=== PATIENT | female | born 1935 | race Caucasian/White ===

== ENCOUNTER 2023-08-04 20:15 | Emergency (ER) | payer MEDICARE, BC, OTHER, SELFPAY ==
[2023-08-04 20:18] VITALS: BP 165/72
[2023-08-05 00:56] VITALS: BMI 19.2
[2023-08-05 01:02] VITALS: BP 150/62
[2023-08-05 01:26] LABS: % Basophils 0.4 % (0-2); % Eosinophils 0.4 % (0-6); % Immature Granulocytes 0.4 % (0-0.5); % Lymphocytes 5.9 % (20.5-51.1); % Monocytes 5.3 % (1.7-9.3); % Neutrophils 87.6 % (42.2-75.2); Absolute Basophils 0.1 10^3/uL (0-0.2); Absolute Eosinophils 0.1 10^3/uL (0-0.7); Absolute Immature Granulocytes 0.1 10^3/uL (0-0.05); Absolute Lymphocytes 0.8 10^3/uL (1.2-3.4); Absolute Monocytes 0.7 10^3/uL (0.1-0.6); Absolute Neutrophils 11.8 10^3/uL (1.4-6.5); Hematocrit 34.8 % (37.0-47.0); Hemoglobin 11.9 g/dL (12.0-16.0); Mean Corp Hgb Conc. 34.2 g/dL (33.0-37.0); Mean Corpuscular Hgb 29.4 pg (27.0-31.0); Mean Corpuscular Volume 85.9 fL (81.0-99.0); Mean Platelet Volume 10.2 fL (7.4-10.4); Nucleated Red Blood Cells % 0 %; Platelet Count 227 10^3/uL (130-400); Red Blood Cell Count 4.05 10^6/uL (4.20-5.40); Red Cell Dist. Width 12.9 % (11.5-14.5); White Blood Cell Count 13.5 10^3/uL (4.8-10.8)
[2023-08-05 01:41] LABS: ALT (SGPT) 43 U/L (0-35); AST (SGOT) 72 U/L (14-36); Albumin 4.2 g/dl (3.5-5.0); Alkaline Phosphatase 151 U/L (38-126); Blood Urea Nitrogen 24 mg/dl (7-17); Calcium 9.5 mg/dl (8.4-10.2); Carbon Dioxide 26 mmol/L (22-30); Chloride 105 mmol/L (98-107); Estimated Creatinine Clearance 50 ml/min; Glucose 117 mg/dl (70-99); Lipase 46 U/L (23-300); Potassium 4.2 mmol/L (3.5-5.1); Sodium 138 mmol/L (135-145); Total Bilirubin 0.4 mg/dl (0.2-1.3); Total Protein 7.1 g/dl (6.3-8.2); eGFR > 60.00
--- NOTE | 2023-08-05 01:55 | ED.GENMED ---
History of Present Illness
<ANTHONY Dickey - Last Filed: 08/07/23 17:49>
General
Chief Complaint: Abdominal Pain
Source: patient and family
Exam Limitations: none
Time Seen by Provider: 08/05/23 00:58
Nursing documentation reviewed up to this point in time: agreed with
Travel History
Have you had any contact with someone who has COVID-19?: No
Do you have any symptoms of coronavirus? Fever > 100 degrees, chills, cough, shortness of breath, sore throat, loss of taste or smell, muscle aches, or headache?: No
History of Present Illness
History of Present Illness:
Patient is an 87-year-old female who started with lower abdominal pain around 4:00pm. She tried Gas-X but this did not relieve her symptoms. She reports that she tried to eat something and that made her pain worse. She complains of pain
throughout the lower abdominal region including bilateral lower quadrants. She was nauseous but denies any nausea now. She reports she was constipated but moved her bowels several times in the waiting room. She denies any fever chills. Denies
any urinary frequency urgency or dysuria. Denies any back pain.
Past History
<ANTHONY Dickey - Last Filed: 08/07/23 17:49>
Past History
ED Past Medical History: HTN
ED Past Surgical History: None
Social History
Tobacco: Non-smoker
Alcohol: None
Review of Systems
<ANTHONY Dickey - Last Filed: 08/07/23 17:49>
Review of Systems
Allergies reviewed?: Yes
All Other Systems: ROS reviewed and negative except as documented in HPI and ROS
Constitutional: Reports no symptoms
Respiratory: Reports no symptoms
Cardiac: Reports no symptoms
ABD/GI: Reports abdominal pain, constipated and other (Was constipated but moved her bowels today); Denies nausea or vomiting
: Reports no symptoms; Denies dysuria, frequency, flank pain or difficulty voiding
Musculoskeletal: Reports no symptoms
Skin: Reports no symptoms
Neurological: Reports no symptoms
Hematologic/Lymphatic: Reports no symptoms
Psychiatric: Reports no symptoms
Phy Exam
<ANTHONY Dickey - Last Filed: 08/07/23 17:49>
General Physical Exam
General Presentation: no apparent distress
General age: appears stated age
General Skin: warm and dry
General Habitus: normal
General Mental: alert
General Hydration: appears well hydrated
Cardiovascular Exam
Cardiovascular Exam: regular rate/rhythm
Gastrointestinal Exam
Gastrointestinal Exam: soft and other (tender throughout lower abd including b/ l lq )
Neurological Exam
Neurological Exam: alert and oriented x3
Musculoskeletal Exam
Musculoskeletal Exam: full ROM
Skin Exam
Skin Exam: normal color and warm/dry
Psychiatric Exam
Psychiatric Exam: normal mood/affect
Course
<ANTHONY Dickey - Last Filed: 08/07/23 17:49>
Orders/Labs/Results
Orders:
Orders
08/04/23 20:19
Complete Blood Count/With Diff Urgent
Comprehensive Metabolic Panel Urgent
Lipase Urgent
08/05/23 01:53
Diphenhydramine [Benadryl] 50 mg IV NOW STA
Hydrocortisone Sod Succinate [Solu-Cortef] 200 mg IV NOW STA
Iohexol [Omnipaque] See Protocol PO NOW STA
08/05/23 01:54
CT Abd/pel W Iv And Oral Contr Urgent
Comment:
Reason For Exam: lower abd pain
0.9% Sodium Chloride 500 ml [Nss] 500 ml IV BOLUS
08/05/23 02:43
UA Reflex to Culture [Urinalysis Reflex To Culture] Urgent
Date Specimen was Collected: 08/05/23
Time Specimen was Collected: 02:29
Abnormal Lab Results
08/05/23
01:16
WBC 13.5 H 10^3/uL
(4.8-10.8)
RBC 4.05 L 10^6/uL
(4.20-5.40)
Hgb 11.9 L g/dL
(12.0-16.0)
Hct 34.8 L %
(37.0-47.0)
Abs Immat Gran (auto) 0.1 H 10^3/uL
(0-0.05)
Absolute Neuts (auto) 11.8 H 10^3/uL
(1.4-6.5)
Absolute Lymphs (auto) 0.8 L 10^3/uL
(1.2-3.4)
Absolute Monos (auto) 0.7 H 10^3/uL
(0.1-0.6)
Neutrophils % 87.6 H %
(42.2-75.2)
Lymphocytes % 5.9 L %
(20.5-51.1)
BUN 24 H mg/dl
(7-17)
Glucose 117 H mg/dl
(70-99)
AST 72 H U/L
(14-36)
ALT 43 H U/L
(0-35)
Alkaline Phosphatase 151 H U/L
(38-126)
08/05/23 01:16
08/05/23 01:16
Vital Signs
Initial and Last Documented VS:
Initial Vital Signs
Temp Pulse Resp BP Pulse Ox
98.9 F 72 18 165/72 94
08/04/23 20:18 08/04/23 20:18 08/04/23 20:18 08/04/23 20:18 08/04/23 20:18
Last Documented Vital Signs
Temp Pulse Resp BP Pulse Ox
98.6 F 68 15 130/51 96
08/05/23 01:00 08/05/23 05:15 08/05/23 05:15 08/05/23 05:00 08/05/23 05:15
<Geraldo Sierra MD - Last Filed: 08/05/23 05:13>
Orders/Labs/Results
Orders:
Orders
08/04/23 20:19
Complete Blood Count/With Diff Urgent
Comprehensive Metabolic Panel Urgent
Lipase Urgent
08/05/23 01:53
Diphenhydramine [Benadryl] 50 mg IV NOW STA
Hydrocortisone Sod Succinate [Solu-Cortef] 200 mg IV NOW STA
Iohexol [Omnipaque] See Protocol PO NOW STA
08/05/23 01:54
CT Abd/pel W Iv And Oral Contr Urgent
Comment:
Reason For Exam: lower abd pain
0.9% Sodium Chloride 500 ml [Nss] 500 ml IV BOLUS
08/05/23 02:43
UA Reflex to Culture [Urinalysis Reflex To Culture] Urgent
Date Specimen was Collected: 08/05/23
Time Specimen was Collected: 02:29
Abnormal Lab Results
08/05/23
01:16
WBC 13.5 H 10^3/uL
(4.8-10.8)
RBC 4.05 L 10^6/uL
(4.20-5.40)
Hgb 11.9 L g/dL
(12.0-16.0)
Hct 34.8 L %
(37.0-47.0)
Abs Immat Gran (auto) 0.1 H 10^3/uL
(0-0.05)
Absolute Neuts (auto) 11.8 H 10^3/uL
(1.4-6.5)
Absolute Lymphs (auto) 0.8 L 10^3/uL
(1.2-3.4)
Absolute Monos (auto) 0.7 H 10^3/uL
(0.1-0.6)
Neutrophils % 87.6 H %
(42.2-75.2)
Lymphocytes % 5.9 L %
(20.5-51.1)
BUN 24 H mg/dl
(7-17)
Glucose 117 H mg/dl
(70-99)
AST 72 H U/L
(14-36)
ALT 43 H U/L
(0-35)
Alkaline Phosphatase 151 H U/L
(38-126)
08/05/23 01:16
08/05/23 01:16
Vital Signs
Initial and Last Documented VS:
Initial Vital Signs
Temp Pulse Resp BP Pulse Ox
98.9 F 72 18 165/72 94
08/04/23 20:18 08/04/23 20:18 08/04/23 20:18 08/04/23 20:18 08/04/23 20:18
Last Documented Vital Signs
Temp Pulse Resp BP Pulse Ox
98.6 F 68 15 130/51 96
08/05/23 01:00 08/05/23 05:15 08/05/23 05:15 08/05/23 05:00 08/05/23 05:15
<ANTHONY Dickey - Last Filed: 08/07/23 17:49>
MDM/Problems Addressed
MDM/Problems Addressed:
Patient is an 87-year-old female who presented with lower abdominal pain that started at 4:00 PM. Patient send for the lower abdominal region denies any UTI symptoms. Patient arrives afebrile white count minimally elevated 2.5, normal creatinine
BUN minimally elevated 24 minimally elevated LFTs. Will order CAT scan with oral and IV contrast. Patient has had a rash from IV contrast but no anaphylaxis. Will order prep. Patient currently drinking tolerating contrast. 0315: Care of
patient this time transferred to Dr. Sierra.
<ANTHONY Dickey - Last Filed: 08/07/23 17:49>
*Critical Care Note
Total Time (30-74mins, 75-104mins- exclusive of procedures): Not Applicable
<Geraldo Sierra MD - Last Filed: 08/05/23 05:13>
Update Note
Update Note:
CT report reviewed and discussed with the patient family. Pt otherwise is afebrile, hemodynamically stable, and nontoxic appearing at discharge. History/exam, along with CT scan consistent with nonspecific abdominal pain, possibly gastritis vs viral
illness. As such, patient will be discharged home in stable condition, with recommendation to continual hydration at home along with bland diet, as well as PCP f/u.
ED Attending Note
<ANTHONY Dickey - Last Filed: 08/07/23 17:49>
-
Portions of this chart may have been created with voice recognition software.� Occasional wrong word or��sound alike� substitutions may have occurred due to the inherent limitations of voice recognition software.
Discharge Plan
Departure
Patient Disposition: Home (Routine Discharge)
Date of Disposition: 08/05/23
Time of Disposition: 05:12
Patient with high blood pressure during this ER visit?: Yes
Condition: Good
Discharge Problem:
Abdominal pain
Instructions: Rooks Diet, Abdominal Pain
Prescriptions:
No Action
omeprazole
40 mg DAILY
disopyramide phosphate 150 mg Capsule
150 mg TID
Probiotic
250 mg BID
cholecalciferol (vitamin D3)
1,000 unit DAILY
Probiotic 3 billion cell capsule
3,000 mmu cells PO DAILY Qty: 30 0RF
Referrals:
Monster Villavicencio MD [Family Provider] -
Activity Restrictions/Additional Instructions:
As discussed, please follow up with your primary care physician with any further concerns.
Interventions
Interventions:
*Risk Screen - Suicide Last Done: 08/05/23 01:01
*General Assessment Last Done: 08/05/23 01:01
*Neglect/Abuse Screening Last Done: 08/05/23 01:01
ED- Fall Risk Assessment Last Done: 08/05/23 01:01
*ED COVID-19 Vaccine History Last Done: 08/04/23 20:18
*Nursing Disposition Last Done: 08/05/23 05:25
OE-[facility]-Mlcppsfoy[facility] Assessment Last Done: 08/05/23 01:00
Discharge Date and Time
Discharge Date/Time: 08/05/23 05:25
Print Language: TELUGU
[2023-08-05 02:00] VITALS: BP 142/54
[2023-08-05] MEDS: SOLU-CORTEF 200 MG IV (02:04)
[2023-08-05] MEDS: NSS 500 IV (02:04)
[2023-08-05] MEDS: OMNIPAQUE 50 ML PO (02:05)
[2023-08-05] MEDS: BENADRYL 50 MG IV (02:15)
[2023-08-05 02:41] VITALS: BP 154/70
[2023-08-05 03:00] VITALS: BP 142/50
[2023-08-05 03:26] LABS: Urine Albumin Negative (Neg - Trace); Urine Bilirubin Negative (Negative); Urine Character Clear (Clear); Urine Color Yellow; Urine Glucose Negative (Negative); Urine Ketone Negative (Negative); Urine Leukocyte Negative (Negative); Urine Nitrite Negative (Negative); Urine Occult Blood Negative (Negative); Urine Specific Gravity 1.005 (<1.030); Urine Urobilinogen Negative (Neg - 1+)
[2023-08-05 04:11] VITALS: BP 153/60
[2023-08-05 05:00] VITALS: BP 130/51
== END 2023-08-05 05:25 | disposition home or self-care (01) ==
LOC: EMR 20:15
PROVIDERS: Nurse Practitioner; Student in an Organized Health Care Education/Training Program; EMERGENCY PHYSICIAN Emergency Medicine; FAMILY PHYSICIAN Internal Medicine
DX: R10.30 Lower abdominal pain, unspecified (principal); I10 Essential (primary) hypertension
CPT/HCPCS: 99285; 96374; 96375; 96361; 74177; 80053; 81003; 83690; 85025; Q9967

== ENCOUNTER 2024-06-16 17:21 | Emergency (ER) | payer MEDICARE, BC, OTHER, SELFPAY ==
[2024-06-16 17:30] VITALS: BP 146/65
--- NOTE | 2024-06-16 17:30 | ED.GENMED ---
History of Present Illness
General
Chief Complaint: Chest Pain
Source: patient
Exam Limitations: none
Time Seen by Provider: 06/16/24 17:28
History of Present Illness
History of Present Illness:
88-year-old female from [facility] presents with fatigue, shortness of breath palpitations onset a few days ago she had a GI illness nausea vomiting diarrhea and drinking tomorrow water, she has dry lips no dysuria or frequency, saw her physician
today felt short of breath when she walked, referred here for evaluation she has no symptoms at rest, no abdominal pain no fever states she is able to keep down fluids
Past History
Past History
ED Past Medical History: HTN
ED Past Surgical History: None
Social History
Tobacco: Non-smoker
Alcohol: None
Drug: None
Living: with family
Employment: Retired
Review of Systems
Review of Systems
All Other Systems: Not applicable
Constitutional: Reports no symptoms; Denies fever or fatigue
Respiratory: Reports no symptoms
Cardiac: Reports palpitations; Denies chest pain (None now)
ABD/GI: Denies abdominal pain, nausea or vomiting
: Reports no symptoms
Musculoskeletal: Reports no symptoms
Neurological: Reports weakness; Denies dizzy
Psychiatric: Reports no symptoms
Phy Exam
Physical Exam
Physical Exam:
Physical Exam
General: no apparent distress, not acutely ill
Neck: Dry lips
Heart: s1/s2 regular rate and rhythm, no murmur. equal radial pulses.
Lungs: no acute respiratory distress. clear bilaterally
Abdomen: Nontender
Neuro: alert and oriented. no focal neurological deficits
Skin: no rash
Psychiatric: well kept. interactive and cooperative
Extremities: no edema. no calf tenderness
Scores
Heart Score for Chest Pain Patients
STEMI patient?: No
History: Slightly or Non-Suspicious
ECG: Nonspecific Repolarization
Age: >/= 65 years
Risk Factors: 1 or 2 Risk Factors
Troponin: </= Normal Limit
Heart Score for Chest Pain Patients: 4
Heart Score Risk: 20.3% MACE over next 6 weeks
Course
Orders/Labs/Results
Orders:
Orders
06/16/24 17:43
CBC/With Diff [Complete Blood Count/With Diff] Urgent
Comprehensive Metabolic Panel Urgent
Magnesium Urgent
Comment: ADD ON
Troponin I Urgent
06/16/24 17:59
Electrocardiogram (*1) Urgent
Reason for Study: Palpitations
EKG- Treatment ONCE
0.9% Sodium Chloride 1000 ml [Nss] 1,000 ml IV BOLUS
06/16/24 18:00
Add On- LAB Urgent
Tests Added?: magnesium
06/16/24 18:02
CR Chest - 2 Views Urgent
Comment:
Reason For Exam: SOB COTA
Abnormal Lab Results
06/16/24
17:43
WBC 4.6 L 10^3/uL
(4.8-10.8)
MPV 10.5 H fL
(7.4-10.4)
Calcium 8.0 L mg/dl
(8.4-10.2)
06/16/24 17:43
06/16/24 17:43
Vital Signs
Initial and Last Documented VS:
Initial Vital Signs
Pulse Ox
98
06/16/24 17:28
Last Documented Vital Signs
Temp Pulse Resp BP Pulse Ox
98.5 F 61 17 159/47 98
06/16/24 19:07 06/16/24 19:37 06/16/24 19:37 06/16/24 19:37 06/16/24 19:00
*Radiology
Radiology exam reviewed: preliminary read by ED provider
*EKG
Interpreted by ED Provider?: Yes
Interpretation: normal
Comparison EKG: no comparison EKG present
Heart Rate: 78
Rate: normal
Rhythm: av sequential
QRS Pattern: normal QRS
Ischemia: no ischemia
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
Rate: normal
Interpretation: normal
Heart Rate: 70
Rhythm: av sequential
*Critical Care Note
Total Time (30-74mins, 75-104mins- exclusive of procedures): Not Applicable
Update Note
Update Note:
7:45 PM labs are noted chest x-ray noted EKG noted patient drinking fluids states she started with some symptoms after eating a pancake today with palpitations, looks well now
ED Attending Note
-
Portions of this chart may have been created with voice recognition software.� Occasional wrong word or��sound alike� substitutions may have occurred due to the inherent limitations of voice recognition software.
Discharge Plan
Departure
Patient Disposition: Home (Routine Discharge)
Date of Disposition: 06/16/24
Time of Disposition: 19:47
Patient with high blood pressure during this ER visit?: No
Condition: Good
Discharge Problem:
Weakness generalized, Heart palpitations
Instructions: Palpitations ED
Prescriptions:
No Action
disopyramide phosphate 150 mg Capsule
150 mg PO TID
fexofenadine 180 mg Tablet
180 mg PO DAILY
omeprazole 40 mg Capsule,Delayed Release(Dr/Ec)
40 mg PO DAILY
cholecalciferol (vitamin D3) [Vitamin D3] 25 mcg (1,000 unit) Tablet
25 mcg PO DAILY
Prolia 60 mg/mL Syringe
60 mg SC [id number]
Probiotic
250 mg PO BID
Referrals:
Rosaura Lobo MD [Family Provider] -
Interventions
Interventions:
*Risk Screen - Suicide Last Done: 06/16/24 17:41
*General Assessment Last Done: 06/16/24 17:31
*Neglect/Abuse Screening Last Done: 06/16/24 17:31
*ED COVID-19 Vaccine History Last Done: 06/16/24 17:31
ED- Cardiac Assessment Last Done: 06/16/24 17:31
Discharge Date and Time
Print Language: MACEDONIAN
[2024-06-16 17:52] LABS: % Basophils 0.4 % (0-2); % Eosinophils 2.6 % (0-6); % Immature Granulocytes 0.4 % (0-0.5); % Lymphocytes 37.5 % (20.5-51.1); % Neutrophils 50.1 % (42.2-75.2); Absolute Eosinophils 0.1 10^3/uL (0-0.7); Absolute Lymphocytes 1.7 10^3/uL (1.2-3.4); Absolute Monocytes 0.4 10^3/uL (0.1-0.6); Absolute Neutrophils 2.3 10^3/uL (1.4-6.5); Hematocrit 40.7 % (37.0-47.0); Hemoglobin 13.5 g/dL (12.0-16.0); Mean Corp Hgb Conc. 33.2 g/dL (33.0-37.0); Mean Corpuscular Hgb 29.4 pg (27.0-31.0); Mean Corpuscular Volume 88.7 fL (81.0-99.0); Mean Platelet Volume 10.5 fL (7.4-10.4); Nucleated Red Blood Cells % 0 %; Platelet Count 191 10^3/uL (130-400); Red Blood Cell Count 4.59 10^6/uL (4.20-5.40); Red Cell Dist. Width 13.2 % (11.5-14.5); White Blood Cell Count 4.6 10^3/uL (4.8-10.8)
[2024-06-16 17:57] VITALS: BP 177/53
[2024-06-16 18:00] VITALS: BP 162/62
[2024-06-16 18:08] LABS: ALT (SGPT) 20 U/L (0-35); AST (SGOT) 34 U/L (14-36); Albumin 4.5 g/dl (3.5-5.0); Alkaline Phosphatase 85 U/L (38-126); Blood Urea Nitrogen 17 mg/dl (7-17); Carbon Dioxide 25 mmol/L (22-30); Chloride 104 mmol/L (98-107); Estimated Creatinine Clearance 48 ml/min; Glucose 97 mg/dl (70-99); Sodium 139 mmol/L (135-145); Total Bilirubin 0.7 mg/dl (0.2-1.3); Total Protein 7.2 g/dl (6.3-8.2); eGFR > 60.00
[2024-06-16] MEDS: NSS 1000 IV (18:08)
[2024-06-16 18:16] LABS: Troponin I < 0.012 ng/ml
[2024-06-16 18:22] LABS: Magnesium 2.2 mg/dl (1.6-2.3)
[2024-06-16 19:00] VITALS: BP 165/44
[2024-06-16 19:37] VITALS: BP 159/47
--- NOTE | 2024-06-16 19:41 | EDRN ---
Pt says she had n/v/d for 6 hours on Friday and has been lightheaded since. Pt ambulatory to bathroom in ED and says she feels better, no lightheadedness. Pt denies cp, sob, abd pain, n/v/d/c, urinary symptoms, weakness, fever/chills/cough.
[2024-06-16 20:00] VITALS: BP 138/40
== END 2024-06-16 20:50 | disposition home or self-care (01) ==
LOC: EMR 17:21
PROVIDERS: EMERGENCY PHYSICIAN Emergency Medicine; FAMILY PHYSICIAN Internal Medicine Geriatric Medicine
DX: R53.1 Weakness (principal); R00.2 Palpitations
CPT/HCPCS: 99285; 96360; 71046; 80053; 83735; 84484; 85025; 93005